=== PATIENT | male | born 1980 ===

== ENCOUNTER 2016-06-20 09:11 | Emergency (ER) | payer OTHER ==
[2016-06-20 10:00] VITALS: BP 133/74; PULSE 65; RESP 18; TEMP 98; O2SAT 99
[2016-06-20] MEDS ORDERED: Sodium Chloride 0.9% 1,000 ML IV STA (10:14)
--- NOTE | 2016-06-20 10:30 | ED PDOC ---
HPI: Abdomen Time Seen by Provider: 06/20/16 09:55 Chief Complaint (Nursing): Abdominal Pain Chief Complaint (Provider): RLQ pain nausea History Per: Patient, Control Operator History/Exam Limitations: no limitations Current Symptoms Are (Timing): Still Present Location Of Pain/Discomfort: RLQ, Periumbilical Quality Of Discomfort: Sharp Associated Symptoms: Nausea, Vomiting, Loss Of Appetite. denies: Diarrhea Exacerbating Factors: None Alleviating Factors: None Additional Complaint(s): 35yo male c/o RLQ abd pain and nausea/vomiting x2 since early this morning. Denies fever, diarrhea, admits to loss appetite. No prior history of similar pain. Past Medical History Reviewed: Historical Data, Nursing Documentation, Vital Signs Vital Signs: Last Vital Signs Temp 98 F 06/20/16 09:53 Pulse 65 06/20/16 09:53 Resp 18 06/20/16 09:53 BP 133/74 06/20/16 09:53 Pulse Ox 99 06/20/16 10:33 - Medical History PMH: No Chronic Diseases - Surgical History Surgical History: No Surg Hx - Family History Family History: States: Unknown Family Hx - Living Arrangements Living Arrangements: With Family - Social History Current smoker - smoking cessation education provided: No - Home Medications Home Medications: Ambulatory Orders Medication Instructions Recorded Ciprofloxacin/Ciprofloxa HCl 500 mg PO BID #10 tab 06/20/16 [Ciprofloxacin] Naproxen [Naprosyn] 500 mg PO BID PRN #14 tablet 06/20/16 Tamsulosin [Flomax] 0.4 mg PO DAILY #3 cap 06/20/16 oxyCODONE/Acetaminophen [Percocet 1 ea PO Q6 PRN #6 tab 06/20/16 5/325 mg Tab] - Allergies Allergies/Adverse Reactions: Allergies Allergy/AdvReac Type Severity Reaction Status Date / Time No Known Allergies Allergy Verified 06/20/16 10:00 Review of Systems ROS Statement: Except As Marked, All Systems Reviewed And Found Negative Constitutional: Negative for: Fever, Chills Eyes: Negative for: Pain, Vision Change Cardiovascular: Negative for: Chest Pain, Palpitations Gastrointestinal: Positive for: Nausea, Vomiting, Abdominal Pain Genitourinary Male: Negative for: Dysuria, Frequency Musculoskeletal: Negative for: Neck Pain, Back Pain Skin: Negative for: Rash, Lesions Neurological: Negative for: Weakness, Numbness Physical Exam - Reviewed Nursing Documentation Reviewed: Yes Vital Signs Reviewed: Yes - Physical Exam Appears: Positive for: Well, Non-toxic, No Acute Distress Head Exam: Positive for: ATRAUMATIC, NORMAL INSPECTION, NORMOCEPHALIC Skin: Positive for: Normal Color, Warm, DRY Eye Exam: Positive for: EOMI, Normal appearance, PERRL ENT: Positive for: Normal ENT Inspection Neck: Positive for: Normal, Painless ROM Cardiovascular/Chest: Positive for: Regular Rate, Rhythm Respiratory: Positive for: CNT, Normal Breath Sounds Gastrointestinal/Abdominal: Positive for: Bowel Sounds, Soft, Tenderness (+RLQ) , Guarding (RLQ). Negative for: Rebound, Asicites Back: Positive for: Normal Inspection Extremity: Positive for: Normal ROM Neurologic/Psych: Positive for: Alert, Oriented - Laboratory Results Result Diagrams: 06/20/16 10:50 06/20/16 10:50 - ECG O2 Sat by Pulse Oximetry: 99 Pulse Ox Interpretation: Normal Medical Decision Making Medical Decision Making: workup initiated for RLQ abd pain r/o appendicitis vs other acute intrabdominal pathology w labwork, CT abd pelv. IVF and pain medicine initiated. labs reviewed UA +blood mild leukocytosis, chem unremarkable -------- CT: Accession No. : [id number] Patient Name / ID : GIAN CEBALLOS / [id number] Exam Date : 06/20/2016 13:51:11 ( Approved ) Study Comment : Sex / Age : M / 35Y Creator : Peewee Benitez MD Dictator : Peewee Benitez MD Chemical Engineering Teacher : Glue Drier Operator : Peewee Benitez MD Approver2 : Report Date : 06/20/2016 14:40:25 My Comment : PROCEDURE: CT Abdomen and Pelvis with contrast HISTORY: RLQ pain vomiting COMPARISON: None. TECHNIQUE: Contrast dose: 95 cc of Omnipaque 300 Radiation dose: Total exam DLP = 1170 mGy-cm. This CT exam was performed using one or more of the following dose reduction techniques: Automated exposure control, adjustment of the mA and/or kV according to patient size, and/or use of iterative reconstruction technique. FINDINGS: LOWER THORAX: Minimal left basilar atelectasis. LIVER: Fatty infiltration of the liver. GALLBLADDER AND BILE DUCTS: Unremarkable. PANCREAS: Unremarkable. No gross lesion or ductal dilatation. SPLEEN: Unremarkable. ADRENALS: Unremarkable. No mass. KIDNEYS AND URETERS: Mild right hydronephrosis and hydroureter with an obstructive calculus in the distal right ureter just proximal to the UVJ measuring roughly 2 millimeters. VASCULATURE: Unremarkable. No aortic aneurysm. BOWEL: Unremarkable. No obstruction. No gross mural thickening. APPENDIX: Normal appendix. PERITONEUM: Unremarkable. No free fluid. No free air. LYMPH NODES: Unremarkable. No enlarged lymph nodes. BLADDER: Unremarkable. REPRODUCTIVE: Unremarkable. BONES: No acute fracture. OTHER FINDINGS: None. IMPRESSION: Mild right hydronephrosis and hydroureter with an obstructive calculus in the distal right ureter just proximal to the UVJ measuring roughly 2 millimeters. Improved in ED w analgesics and IVF. Rx flomax, cipro and pain medicine. Followup urology. Disposition - Clinical Impression Clinical Impression: Nephrolithiasis - Patient ED Disposition Is Patient to be Admitted: No Counseled Patient/Family Regarding: Studies Performed, Diagnosis, Need For Followup, Rx Given - Disposition Referrals: Fredrick Pringle Jr., MD [Staff Provider] - Disposition: Routine/Home Disposition Time: 15:39 Condition: STABLE Additional Instructions: Return to ER for any new or worsening symptoms. Drink plenty of fluids. Take medications as directed. Prescriptions: Ciprofloxacin/Ciprofloxa HCl [Ciprofloxacin] 500 mg PO BID #10 tab Naproxen [Naprosyn] 500 mg PO BID PRN #14 tablet PRN Reason: Pain, Moderate (4-7) oxyCODONE/Acetaminophen [Percocet 5/325 mg Tab] 1 ea PO Q6 PRN #6 tab PRN Reason: Pain, Severe (8-10) Tamsulosin [Flomax] 0.4 mg PO DAILY #3 cap Instructions: Kidney Stones (ED), Renal Colic (ED) Print Language: MALTESE
[2016-06-20 10:59] LABS: BASO % 0.3 % (0.0-2.0); HEMATOCRIT 44.5 % (35.0-51.0); LYMPH # 0.8 K/uL (1.0-4.3); LYMPH % 6.7 % (20.0-40.0); MEAN CELL VOLUME 84.5 fl (80.0-94.0); MEAN CORPUSCULAR HEMOGLOBIN 28.3 pg (27.0-31.0); MEAN CORPUSCULAR HGB CONC 33.5 g/dL (33.0-37.0); MEAN PLATELET VOLUME 7.3 fl (7.2-11.7); MONO # 0.3 K/uL (0.0-0.8); MONO % 2.3 % (0.0-10.0); NEUT # 10.5 K/uL (1.8-7.0); NEUT % 90.7 % (50.0-75.0); PLATELET COUNT 283 K/uL (130-400); RED CELL DISTRIBUTION WIDTH 13.6 % (11.5-14.5); WHITE BLOOD COUNT 11.6 K/uL (4.8-10.8)
[2016-06-20 11:06] LABS: RBC URINE 331 /hpf (0-3); URINE BACTERIA RARE (<OCC); URINE BILIRUBIN NEGATIVE (NEGATIVE); URINE BLOOD LARGE (NEGATIVE); URINE COLOR YELLOW (YELLOW); URINE GLUCOSE (UA) NEG (Normal); URINE KETONE TRACE mg/dL (NEGATIVE); URINE LEUKOCYTE ESTERASE NEG Leu/uL (Negative); URINE PROTEIN 30 mg/dL (NEGATIVE); URINE UROBILINOGEN 0.2-1.0 mg/dL (0.2-1.0); WBC URINE 3 /hpf (0-5)
[2016-06-20 11:09] LABS: ALB/GLOB RATIO 1.4 (1.0-2.1); ALKALINE PHOSPHATASE 74 U/L (38-126); ALT/SGPT 32 U/L (21-72); AST/SGOT 26 U/L (17-59); BILIRUBIN,TOTAL 0.4 mg/dl (0.2-1.3); BLOOD UREA NITROGEN 10 mg/dl (9-20); CALCIUM 9.6 mg/dL (8.4-10.2); CARBON DIOXIDE 24 mmol/L (22-30); CHLORIDE 103 mmol/L (98-107); GFR AFRICAN-AMERICAN > 60; GLUCOSE,RANDOM 112 mg/dL (75-110); LIPASE 61 U/L (23-300); POTASSIUM 3.8 MMOL/L (3.6-5.0); SODIUM 140 mmol/l (132-148); TOTAL PROTEIN 8.3 G/DL (6.3-8.2)
[2016-06-20 12:22] LABS: BASOPHIL 1 % (0-2); NEUTROPHIL 86 % (42-75); REACTIVE LYMPHOCYTES 2 % (0-0); TOTAL CELLS COUNTED 100
[2016-06-20] MEDS ORDERED: Iohexol 300 100 ML IJ ONE (13:26)
[2016-06-20] MEDS ORDERED: Sodium Chloride 0.9% 50 ML IV ONE (13:27)
--- NOTE | 2016-06-20 14:42 | CT ---
PROCEDURE: CT Abdomen and Pelvis with contrast HISTORY: RLQ pain vomiting COMPARISON: None. TECHNIQUE: Contrast dose: 95 cc of Omnipaque 300 Radiation dose: Total exam DLP = 1170 mGy-cm. This CT exam was performed using one or more of the following dose reduction techniques: Automated exposure control, adjustment of the mA and/or kV according to patient size, and/or use of iterative reconstruction technique. FINDINGS: LOWER THORAX: Minimal left basilar atelectasis. LIVER: Fatty infiltration of the liver. GALLBLADDER AND BILE DUCTS: Unremarkable. PANCREAS: Unremarkable. No gross lesion or ductal dilatation. SPLEEN: Unremarkable. ADRENALS: Unremarkable. No mass. KIDNEYS AND URETERS: Mild right hydronephrosis and hydroureter with an obstructive calculus in the distal right ureter just proximal to the UVJ measuring roughly 2 millimeters. VASCULATURE: Unremarkable. No aortic aneurysm. BOWEL: Unremarkable. No obstruction. No gross mural thickening. APPENDIX: Normal appendix. PERITONEUM: Unremarkable. No free fluid. No free air. LYMPH NODES: Unremarkable. No enlarged lymph nodes. BLADDER: Unremarkable. REPRODUCTIVE: Unremarkable. BONES: No acute fracture. OTHER FINDINGS: None. IMPRESSION: Mild right hydronephrosis and hydroureter with an obstructive calculus in the distal right ureter just proximal to the UVJ measuring roughly 2 millimeters.
[2016-06-20] MEDS ORDERED: Oxycodone/Acetaminophen 5/325 mg Tab PO ONE (15:24)
[2016-06-20] MEDS ORDERED: Oxycodone/Acetaminophen 5/325 mg Tab ONE (16:04)
== END 2016-06-20 16:36 | disposition home or self-care (01) ==
LOC: H.ER 09:11
DX: R10.31 Right lower quadrant pain (principal); N20.1 Calculus of ureter; N13.2 Hydronephrosis with renal and ureteral calculous obstruction; R11.2 Nausea with vomiting, unspecified

== ENCOUNTER 2017-03-01 10:27 | Emergency (ER) | payer OTHER, SELFPAY ==
[2017-03-01 10:50] VITALS: BP 112/55; PULSE 94; RESP 18; TEMP 99.1; O2SAT 99
--- NOTE | 2017-03-01 13:35 | ED PDOC ---
HPI: General Adult Time Seen by Provider: 03/01/17 10:57 Chief Complaint (Nursing): Flu-like Symptoms History Per: Patient Additional Complaint(s): Pt. states < 48 hours he's had cough, congestion, sore throat, and fever. He has not taken any meds to help relieve symptoms. Denies SOB, chest pain, palpitations, hemoptysis. Past Medical History Reviewed: Historical Data, Nursing Documentation, Vital Signs Vital Signs: Last Vital Signs Temp 99.1 F 03/01/17 10:48 Pulse 94 H 03/01/17 10:48 Resp 18 03/01/17 10:48 BP 112/55 L 03/01/17 10:48 Pulse Ox 99 03/01/17 10:48 - Family History Family History: States: No Known Family Hx - Home Medications Home Medications: Ambulatory Orders Medication Instructions Recorded Ciprofloxacin/Ciprofloxa HCl 500 mg PO BID #10 tab 06/20/16 [Ciprofloxacin] Naproxen [Naprosyn] 500 mg PO BID PRN #14 tablet 06/20/16 Tamsulosin [Flomax] 0.4 mg PO DAILY #3 cap 06/20/16 oxyCODONE/Acetaminophen [Percocet 1 ea PO Q6 PRN #6 tab 06/20/16 5/325 mg Tab] Benzonatate [Tessalon Perle] 100 mg PO Q8 PRN #30 capsule 03/01/17 Oseltamivir Phosphate [Tamiflu] 75 mg PO BID #10 capsule 03/01/17 - Allergies Allergies/Adverse Reactions: Allergies Allergy/AdvReac Type Severity Reaction Status Date / Time aspirin Allergy RASH Verified 03/01/17 10:47 Review of Systems ROS Statement: Except As Marked, All Systems Reviewed And Found Negative Constitutional: Positive for: Fever ENT: Positive for: Nose Congestion, Throat Pain Respiratory: Positive for: Cough Physical Exam - Physical Exam Appears: Positive for: Well, Non-toxic, No Acute Distress Skin: Positive for: Normal Color, Warm. Negative for: Rash Eye Exam: Positive for: EOMI, Normal appearance, PERRL ENT: Positive for: Normal ENT Inspection Cardiovascular/Chest: Positive for: Regular Rate, Rhythm Respiratory: Positive for: CNT, Normal Breath Sounds Gastrointestinal/Abdominal: Positive for: Normal Exam, Soft. Negative for: Tenderness Neurologic/Psych: Positive for: Alert, Oriented - ECG O2 Sat by Pulse Oximetry: 99 - Progress ED Course And Treament: Rapid flu, rapid strep: negative. Pt. will be treated for clinical influenza. Disposition - Clinical Impression Clinical Impression: Influenza-like symptoms - Patient ED Disposition Is Patient to be Admitted: No - Disposition Disposition: Routine/Home Disposition Time: 13:00 Condition: STABLE Prescriptions: Benzonatate [Tessalon Perle] 100 mg PO Q8 PRN #30 capsule PRN Reason: Cough Oseltamivir Phosphate [Tamiflu] 75 mg PO BID #10 capsule Instructions: Influenza (ED) Forms: [employer] (Vietnamese), [facility] ED School/Work Excuse Print Language: TURKISH
== END 2017-03-01 13:31 | disposition home or self-care (01) ==
LOC: H.ER 10:27
DX: J11.1 Influenza due to unidentified influenza virus with other respiratory manifestations (principal)